=== PATIENT | female | born 1955 | race Caucasian/White ===

== ENCOUNTER 2021-07-28 21:31 | Emergency (ER) | payer OTHER | END 2021-07-28 22:51 | disposition home or self-care (01) | LOC: JD.ED 21:31 | DX: L76.22 Postprocedural hemorrhage of skin and subcutaneous tissue following other procedure (principal); Z88.1 Allergy status to other antibiotic agents; Z88.5 Allergy status to narcotic agent | CPT/HCPCS: 99283 ==

== ENCOUNTER 2024-08-13 21:43 | Emergency (ER) | payer MEDICARE, OTHER ==
[2024-08-13] MEDS: Proparacaine 0.5% Ophth Soln 15 ML Bottle EYEBOTH ONE (22:35)
[2024-08-13] MEDS: Fluorescein 1 MG Ophth Strip EYEBOTH ONE (22:35)
[2024-08-13] MEDS: Ciprofloxacin 0.3% Ophth Soln 5 ML Bottle EYERT ONE (23:06)
== END 2024-08-13 23:08 | disposition home or self-care (01) ==
LOC: JD.ED 21:43
DX: H57.89 Other specified disorders of eye and adnexa (principal); Z88.8 Allergy status to other drugs, medicaments and biological substances; Z79.899 Other long term (current) drug therapy
CPT/HCPCS: 99283; A9270; J3490